=== PATIENT | female | born 1985 | race Caucasian/White ===

== ENCOUNTER 2018-08-03 15:08 | Emergency (ER) | payer MEDICAID, OTHER ==
[~2018-08-03] VITALS: Ht 170.2 cm; Wt 68.0 kg
[2018-08-03 16:03] LABS: Albumin 3.9 g/dL (3.4-5.0); Calcium 8.5 mg/dL (8.5-10.1); Potassium 3.8 mmol/L (3.5-5.1)
[2018-08-03 16:07] LABS: BUN/Creatinine Ratio 14.3; Bilirubin, Total 0.4 mg/dL (0.2-1.0); Total Protein 7.7 g/dL (6.4-8.2)
[2018-08-03 16:23] LABS: Basophils # (auto) 0 uL; Hematocrit 32.4 % (36.0-46.0); Lymphocytes # (auto) 1.4 uL; Monocytes # (auto) 0.6 uL
[2018-08-03 16:27] LABS: Basophils % (auto) 0.3 % (0.0-2.0); Eosinophils # (auto) 0.1 uL; Eosinophils % (auto) 0.6 % (0.0-7.0); Hemoglobin 10.2 g/dL (12.2-16.2); Lymphocytes % (auto) 15.7 % (10.0-50.0); Mean Corpuscular Hgb Conc. 31.4 g/dL (32.0-36.0); Monocytes % (auto) 6.6 % (0.0-12.0); Neutrophils # (auto) 6.7 uL; Neutrophils % (auto) 76.8 % (37.0-80.0); Nucleated Red Blood Cells % 0.1 %; Platelet Count (auto) 125 10^3/uL (140-450); Red Blood Cells 4.43 10^6/uL (4.0-5.20); Red Cell Distribution Width 18.6 % (11.8-14.3); White Blood Cell 8.7 10^3/uL (4.4-10.8)
[2018-08-03 16:36] LABS: Urine Bacteria FEW /hpf (None Seen); Urine Blood Negative /uL (Negative); Urine Specific Gravity 1.017 (1.001-1.035); Urine WBC 12 /hpf (0 - 5)
[2018-08-03 17:13] VITALS: BP 118/74
== END 2018-08-03 18:30 | disposition home or self-care (01) ==
LOC: ER 15:24
DX: O23.41 Unspecified infection of urinary tract in pregnancy, first trimester (principal); O34.11 Maternal care for benign tumor of corpus uteri, first trimester; Z3A.01 Less than 8 weeks gestation of pregnancy
CPT/HCPCS: 36415; 76801; 80053; 81001; 81025; 84702; 85025

== ENCOUNTER 2018-09-02 08:22 | Emergency (ER) | payer MEDICAID ==
[~2018-09-02] VITALS: Ht 167.6 cm; Wt 72.1 kg
[2018-09-02 08:35] VITALS: BP 118/72
[2018-09-02 09:40] LABS: Urine Bacteria NONE SEEN /hpf (None Seen); Urine Blood Negative /uL (Negative); Urine Mucus FEW (None Seen); Urine Specific Gravity 1.024 (1.001-1.035); Urine WBC 3 /hpf (0 - 5)
== END 2018-09-02 09:50 | disposition left against medical advice (07) ==
LOC: ER 08:22
DX: O46.91 Antepartum hemorrhage, unspecified, first trimester (principal); O23.41 Unspecified infection of urinary tract in pregnancy, first trimester; Z3A.12 12 weeks gestation of pregnancy; Z88.2 Allergy status to sulfonamides
CPT/HCPCS: 81001